=== PATIENT | male | born 1995 | race Hispanic/Latino ===

== ENCOUNTER 2025-05-26 07:20 | Emergency (ER) | payer BC ==
[~2025-05-26] VITALS: Ht 177.8 cm; Wt 81.4 kg
[2025-05-26] MEDS: KETOROLAC TROMETHAMINE 30 MG/ML VIAL IV STA (08:22)
[2025-05-26] MEDS: ACETAMINOPHEN 325 MG TAB PO ONE (08:22)
[2025-05-26] MEDS ORDERED: DOXYCYCLINE HY100 MG PO (08:31)
[2025-05-26] MEDS: CEFTRIAXONE 1 GM VIAL IV ONE (08:32)
[2025-05-26 09:35] VITALS: PULSE 65; RESP 18; TEMP 98.5; O2SAT 100
== END 2025-05-26 09:36 | disposition home or self-care (01) ==
LOC: FSED 07:45
DX: R30.0 Dysuria (principal); N34.2 Other urethritis; M54.50 Low back pain, unspecified; R10.9 Unspecified abdominal pain
CPT/HCPCS: 74176; 80048; 80076; 81003; 85025; 99283; J0696; J1885